=== PATIENT | female | born 1955 | race Caucasian/White ===

== ENCOUNTER 2017-10-12 06:58 | Day surgery (SDC) | payer OTHER ==
[2017-10-12] MEDS ORDERED: LACTATED RINGERS 1,000 ML IV ONE ×2 (07:05→11:51)
[2017-10-12] MEDS ORDERED: ceFAZolin 2 GM/50 ML 2 GM/50 ML BAG IV ONE (07:11)
[2017-10-12 07:44] LABS: BASOPHILS # (AUTO) 0.1 10^3/uL (0.0-0.1); BASOPHILS % (AUTO) 0.8 %; EOSINOPHILS # (AUTO) 0.3 10^3/uL (0.0-0.7); EOSINOPHILS % (AUTO) 3.4 %; HGB - HEMOGLOBIN 13.2 g/dL (12.0-16.0); LYMPHOCYTES # (AUTO) 3.1 10^3/uL (1.5-3.5); LYMPHOCYTES % (AUTO) 33.4 %; MEAN CORPUSCULAR HEMOGLOBIN 28.8 pg (27.0-31.0); MEAN CORPUSCULAR VOLUME 87.5 fL (81.0-99.0); MEAN PLATELET VOLUME 9.5 fL (7.9-10.8); MONOCYTES # (AUTO) 0.6 10^3/uL (0.0-1.0); MONOCYTES % (AUTO) 6.2 %; NEUTROPHILS # (AUTO) 5.2 10^3/uL (1.5-6.6); NEUTROPHILS % (AUTO) 56.2 %; PLT - PLATELET COUNT 244 10^3/uL (130-450); RED BLOOD COUNT 4.58 10^6/uL (4.20-5.40); WHITE BLOOD COUNT 9.3 x10^3/uL (4.8-10.8)
[2017-10-12 07:46] LABS: ALBUMIN 4.1 g/dL (3.2-5.5); ALBUMIN/GLOBULIN RATIO 1.1 (1.0-2.2); BILIRUBIN,TOTAL 0.6 mg/dL (0.2-1.0); CALCIUM 8.9 mg/dL (8.5-10.3); CREATININE 0.4 mg/dL (0.4-1.0); TOTAL PROTEIN 7.9 g/dL (6.7-8.2)
[2017-10-12] MEDS ORDERED: IPRATROPIUM/ALBUTEROL 3 ML NEB INH ONE (09:48)
[2017-10-12] MEDS ORDERED: ROCURONIUM 50 MG/5 ML VIAL IVP ONE (10:40)
[2017-10-12] MEDS ORDERED: ACETAMINOPHEN 1,000 MG/100 ML 100 ML IV ONE (10:40)
[2017-10-12] MEDS ORDERED: NEOSTIGMINE 1 MG/1 ML 10 ML MDV IVP ONE (10:40)
[2017-10-12] MEDS ORDERED: KETOROLAC 30 MG/ML VIAL IVP ONE (10:40)
[2017-10-12] MEDS ORDERED: ONDANSETRON 4 MG/2 ML VIAL IVP ONE (10:40)
[2017-10-12] MEDS ORDERED: ePHEDrine 50 MG/ML VIAL IVP ONE (10:40)
[2017-10-12] MEDS ORDERED: PROPOFOL 200 MG/20 ML VIAL IVP ONE (10:40)
[2017-10-12] MEDS ORDERED: GLYCOPYRROLATE 1 MG/5 ML VIAL IVP ONE (10:40)
[2017-10-12] MEDS ORDERED: fentaNYL 100 MCG/2 ML VIAL IVP ONE (10:40)
[2017-10-12] MEDS ORDERED: MIDAZOLAM 2 MG/2 ML VIAL IVP ONE (10:40)
[2017-10-12] MEDS ORDERED: LIDOCAINE-MPF 2% 5 ML VIAL IM ONE (10:40)
[2017-10-12] MEDS ORDERED: BUPIVACAINE 0.5% PF 30 ML VIAL INFIL ONE (10:44)
--- NOTE | 2017-10-12 12:18 | OPERATIVE REPORT ---
Operative Report - General Procedure Date: 10/12/17 Planned Procedure: Bilateral TEP inguinal herniorrhaphy Pre-Op Diagnosis: Bilateral inguinal hernias Procedure Performed: Bilateral TEP inguinal herniorrhaphy Post Op Diagnosis: Bilateral direct inguinal hernias - Procedure Note Primary Surgeon: Leighton Mendoza MD Anesthesia Provider: Cristofer Jones CRNA Anesthesia Technique: General LMA, Local (30 mL 1/2% marcaine) IV Fluids (mL): 900 Estimated Blood Loss (mL): 5 Urine Output (mL): 225 Drain/Tube Type: Other (None.) Complications: None. - Other Other Information/Narrative: OPERATIVE DESCRIPTION/REPORT: After verbal and written informed consent was obtained detailing the risks of infection, bleeding requiring transfusion with its risks, nerve injury, and , and after I met with the patient confirming the surgery and the site of the surgery, the patient was brought to the operative suite and placed supine on the operating table. Great care was taken to avoid pressure points to prevent pressure necrosis or nerve injury. Monitoring devices were applied along with TEDs and pneumatic compressive stockings (to prevent DVT). The patient received preoperative antibiotics for surgical prophylaxis. Cristofer Jones sedated and induced general anesthesia and provided anesthesia care for the entirety of the case. The patient was prepped and draped in the usual sterile manner. With the patient draped my initials were clearly visible. A "time in" then confirmed that the patient was identified with 3 identifiers ( name, date and medical record number), the history and physical was in the chart, the signed consent confirming the procedure was in the chart, the patient was in the correct position, the aforementioned prophylactic measures were in place or given, we had the correct personnel and equipment to complete the procedure and that anesthesia, surgery and nursing were given an opportunity to express any concerns. With the agreement of everyone in the room , we proceeded with the operation. A transverse skin incision was made below the umbilicus to a length of approximately 3 cm tracing the previous incision. The incision was carried through the subcutaneous tissue. Bleeders were cauterized. The right rectus sheath was identified and incised lateral to the midline. The preperitoneal space was then developed following insertion of a Spacemaker balloon, which was inflated under direct vision. Following removal of the Spacemaker balloon, a #10 trocar was placed in the preperitoneal space and the preperitoneal space was insufflated with CO2 to a steady state pressure of 12 mmHg. A 10 mm 30 degree laparoscope was inserted in the preperitoneal space. Two #5 trocars were placed 5 cm below the umbilicus and just medial to the epigastric vessels bilaterally under direct vision and without incident. Landmarks including symphysis pubis, right and left Warren ligaments and right and left inferior epigastric vessels were all identified. Dissection was then continued lateral to the transverse abdominis muscle bilaterally. The right side was addressed first. The internal ring was then explored for the presence of the indirect hernia sac and this was reduced under direct vision with traction and counter-traction. Exploration of the medial space showed a medial defect suggesting the presence of a direct hernia. The round ligament was identified and proximally and distally clipped twice and transected. The left side was similarly dissected and similar albeit smaller findings were documented. Because of my location at the opearting room table, I placed the LEFT side mesh first. A large size Bard 3DMax mesh (Lot#[id number], reference #[id number] and use by date 2022-04-26) was placed in the preperitoneal space and anchored to the symphysis pubis with a Securestrap tacker (Lot#[id number] , use by date 05/2019). The mesh covered the internal ring as well as the direct hernia site. The RIGHT side was then addressed and on this side a large size Bard 3DMax mesh (Lot#[id number], reference #[id number] and use by date ) was placed in the preperitoneal space and anchored to the symphysis pubis with a Securestrap tacker (Lot#[id number], use by date 05/2019). The two mesh pieces were made to overlap at the symphysis and a photo was taken of this. 10 mL of 1/2% Marcaine was injected into the preperitoneal space and then remaining 20 mL at all three incisions. The preperitoneal space was then deflated and during the deflation the mesh was watched to ensure that it was sandwiched nicely in place and did not change position. All trocars were withdrawn. The skin and fascia were injected with 1/ 2% macaine. The defect in the rectus sheath was closed with a 2 figure-of- eight 0 Vicryl sutures. The skin incisions were closed with subcuticular 4-0 Monocryl suture. The prep was washed off and Mastisol and Steristrips were applied at all the incisions. At this point a time out was performed that confirmed that all the counts were correct, the procedure that was performed, the blood loss, the IV fluids administered, and the patients condition. The prep was washed off and Benzoin and Steristrips were applied. Having tolerated the procedure well, the patient was subsequently extubated and taken to recovery room in good and stable condition.
[2017-10-12] MEDS ORDERED: oxyCOD/ACETAMIN 5 MG/325 MG TABLET PO ONE (12:49)
[2017-10-12 13:32] VITALS: BP 128/88
== END 2017-10-12 06:59 | disposition home or self-care (01) ==
LOC: SDS 06:58
PROVIDERS: ATTEND Surgery
PROC: 0YUA4JZ Supplement Bilateral Inguinal Region with Synthetic Substitute, Percutaneous Endoscopic Approach (ICD-10-PCS; principal; 2017-10-12 08:45)
DX: K40.20 Bilateral inguinal hernia, without obstruction or gangrene, not specified as recurrent (principal); I10 Essential (primary) hypertension; E11.9 Type 2 diabetes mellitus without complications; E78.5 Hyperlipidemia, unspecified; J44.9 Chronic obstructive pulmonary disease, unspecified; Z79.82 Long term (current) use of aspirin; Z79.84 Long term (current) use of oral hypoglycemic drugs; F17.210 Nicotine dependence, cigarettes, uncomplicated; I25.2 Old myocardial infarction; Z95.5 Presence of coronary angioplasty implant and graft
CPT/HCPCS: 36415; 49650; 80053; 85025; 93005; A9270; C1781; J0131; J0690; J7120; J7620

== ENCOUNTER 2017-12-11 00:32 | Emergency (ER) | payer OTHER ==
[2017-12-11 00:42] VITALS: BP 162/94
[2017-12-11] MEDS ORDERED: PSEUDOEPHEDRINE 30 MG TABLET PO STA (01:01)
[2017-12-11] MEDS ORDERED: IBUPROFEN 400 MG TABLET PO STA (01:01)
--- NOTE | 2017-12-11 01:04 | ED Physician Documentation ---
PD HPI HEENT - Stated complaint Stated Complaint: SORE THROAT - Chief complaint Chief Complaint: Heent - History obtained from History obtained from: Patient - History of Present Illness Timing - onset: How many weeks ago (3) Timing - details: Gradual onset, Intermittant Location: Throat Associated symptoms: Congestion. No: Facial swelling Similar symptoms before: Work up / diagnostics Recently seen: Clinic - Additional information Additional information: patient is a 62 year old female who is presenting to the emergency department for ear and throat pain. Patient states that the symptoms have been going on for almost 4 weeks. patient saw her pmd who started her on fluconazole for some patches. patient states that her throat is still red and irritated and was worried that she might have strep throat. patient denies any fevers. Review of Systems Constitutional: denies: Fever, Chills Eyes: denies: Discharge Ears: reports: Ear pain. denies: Drainage/discharge Nose: reports: Sinus pressure / pain Throat: reports: Oral lesions / sores, Sore throat Cardiac: denies: Chest pain / pressure, Palpitations Respiratory: reports: Cough, Wheezing GI: denies: Nausea, Vomiting : reports: Reviewed and negative Skin: denies: Rash, Lesions Neurologic: denies: Generalized weakness, Headache Immunocompromised: denies: Immunocompromised PD PAST MEDICAL HISTORY - Past Medical History Past Medical History: Yes Cardiovascular: Hypertension, High cholesterol, Coronary artery disease, [place], Arrhythmia, Other Respiratory: COPD, Shortness of breath Endocrine/Autoimmune: Type 2 diabetes GI: GERD : Other HEENT: Other Psych: Claustrophobia Musculoskeletal: Osteoarthritis Derm: None - Past Surgical History 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 surgery) Cardiovascular: Coronary stent - Present Medications Home Medications: Ambulatory Orders Medication Instructions Recorded Confirmed Ascorbic Acid [Vitamin C] 500 mg PO DAILY 10/11/17 10/11/17 Aspirin [Aspirin EC] 81 mg PO DAILY 10/11/17 10/12/17 Cetirizine [ZyrTEC] 10 mg PO DAILY 10/11/17 10/12/17 Fluticasone [Flonase] 1 sprays SANTHOSH DAILY 10/11/17 10/12/17 Fluticasone/Salmeterol [Advair 1 each IH BID 10/11/17 10/12/17 500-50 Diskus] Metformin HCl 500 mg PO DAILY 10/11/17 10/12/17 Metoprolol Tartrate 75 mg PO DAILY 10/11/17 10/12/17 Naproxen Sodium [Aleve] 220 mg PO DAILY PM 10/11/17 10/11/17 Pantoprazole [Protonix] 40 mg PO DAILY 10/11/17 10/12/17 Psyllium Husk [Metamucil] 4 cap PO DAILY 10/11/17 10/12/17 Tiotropium [place] [Spiriva] 1 cap IH DAILY 10/11/17 10/12/17 Vitamin B Complex/Folic Acid 1 tab PO DAILY 10/11/17 10/11/17 [B-Complex Tablet] Amlodipine Besylate [Norvasc] 10 mg PO DAILY 10/12/17 10/12/17 Carbamide Peroxide Otic Drop 10 drops OT ONCE #1 bottle 12/11/17 [Debrox Otic Drops] - Allergies Allergies/Adverse Reactions: Allergies Allergy/AdvReac Type Severity Reaction Status Date / Time No Known Drug Allergies Allergy Verified 12/11/17 00:41 - Social History Does the pt smoke?: No Smoking Status: Never smoker Does the pt drink ETOH?: No Does the pt have substance abuse?: No - Immunizations Immunizations are current?: Yes - POLST Patient has POLST: No PD ED PE NORMAL - Vitals Vital signs reviewed: Yes - General General: Alert and oriented X 3, No acute distress - HEENT HEENT: Atraumatic - Neck Neck: No adenopathy - Cardiac Cardiac: RRR - Respiratory Respiratory: No respiratory distress - Abdomen Abdomen: Non distended - Derm Derm: Normal color, Warm and dry - Extremities Extremities: No deformity - Neuro Neuro: Alert and oriented X 3, No motor deficit Eye Opening: Spontaneous PD ED PE EXPANDED - HEENT HEENT: Nasal congestion, Pharyngeal erythema, Dentition normal, Other ( bilateral cerumen). 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 Patient was in no distress. rapid strep was performed. patient's cerumen was partially removed. Patient's exam was benign in nature. Patient was treated with ibuprofen and psuedophed. Patient required no further work up and was stable for discharge with outpatient follow up. Departure - Departure Disposition: Home, Self Care Clinical Impression: Pharyngitis Condition: Good Instructions: ED Pharyngitis Viral Follow-Up: KENYATTA ESPINAL MD [Primary Care Provider] - Within 3 Days Prescriptions: Carbamide Peroxide Otic Drop [Debrox Otic Drops] 10 drops OT ONCE #1 bottle Comments: Your diagnostics today were within normal limits. strep test was negative. there was a moderate amount of cerumen in your ears but no sign of overt infection. You should start with decongestants, and throat lozenges as it is likely viral as opposed to bacterial. You should follow up with your doctor if your symptoms persist. You should also stop smoking as it is likely contributing to you issues.
== END 2017-12-11 01:10 | disposition home or self-care (01) ==
LOC: ED 00:32
DX: J02.9 Acute pharyngitis, unspecified (principal); I10 Essential (primary) hypertension; E11.9 Type 2 diabetes mellitus without complications; Z79.84 Long term (current) use of oral hypoglycemic drugs; E78.00 Pure hypercholesterolemia, unspecified; I25.10 Atherosclerotic heart disease of native coronary artery without angina pectoris; I25.2 Old myocardial infarction; I49.9 Cardiac arrhythmia, unspecified; J44.9 Chronic obstructive pulmonary disease, unspecified; K21.9 Gastro-esophageal reflux disease without esophagitis; M19.90 Unspecified osteoarthritis, unspecified site; Z79.82 Long term (current) use of aspirin
CPT/HCPCS: 87070; 87430; 99283; A9270

== ENCOUNTER 2018-03-06 14:14 | Emergency (ER) | payer OTHER ==
[2018-03-06 14:28] VITALS: BP 148/74
[2018-03-06] MEDS ORDERED: LIDOCAINE 2% 10 ML MDV SUBQ STA (14:50)
--- NOTE | 2018-03-06 14:59 | ED Physician Documentation ---
History of Present Illness - Stated complaint Stated Complaint: LT HAND FING RING STUCK - Chief complaint Chief Complaint: General - History obtained from History obtained from: Patient - History of Present Illness Timing: Other (hasn't tried to remove the rings for 3 years.) Pain level max: 0 Pain level now: 0 Improved by: nothing Worsened by: nothing - Additonal information Additional information: Patient is a 63-year-old female who presents to the emergency department with a ring stuck on her left ring finger. The rings were last removed 3 years ago. Tried to go to a jeweler but they could not remove the rings as they were made of steel. She then went to the police station who also could not help her. She tried dental floss at home but was unable to remove the rings. 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 surgery) Cardiovascular: Coronary stent - Present Medications Home Medications: Ambulatory Orders Medication Instructions Recorded Confirmed Ascorbic Acid [Vitamin C] 500 mg PO DAILY 10/11/17 10/11/17 Aspirin [Aspirin EC] 81 mg PO DAILY 10/11/17 10/12/17 Cetirizine [ZyrTEC] 10 mg PO DAILY 10/11/17 10/12/17 Fluticasone [Flonase] 1 sprays SANTHOSH DAILY 10/11/17 10/12/17 Fluticasone/Salmeterol [Advair 1 each IH BID 10/11/17 10/12/17 500-50 Diskus] Metformin HCl 500 mg PO DAILY 10/11/17 10/12/17 Metoprolol Tartrate 75 mg PO DAILY 10/11/17 10/12/17 Pantoprazole [Protonix] 40 mg PO DAILY 10/11/17 10/12/17 Psyllium Husk [Metamucil] 4 cap PO DAILY 10/11/17 10/12/17 Tiotropium [place] [Spiriva] 1 cap IH DAILY 10/11/17 10/12/17 Vitamin B Complex/Folic Acid 1 tab PO DAILY 10/11/17 10/11/17 [B-Complex Tablet] Amlodipine Besylate [Norvasc] 10 mg PO DAILY 10/12/17 10/12/17 - Allergies Allergies/Adverse Reactions: Allergies Allergy/AdvReac Type Severity Reaction Status Date / Time No Known Drug Allergies Allergy Verified 03/06/18 14:26 - Social History Does the pt smoke?: No Smoking Status: Never smoker Does the pt drink ETOH?: No Does the pt have substance abuse?: No - Immunizations Immunizations are current?: Yes - POLST Patient has POLST: No PD ED PE NORMAL - Vitals Vital signs reviewed: Yes - General General: Alert and oriented X 3, No acute distress - HEENT HEENT: Moist mucous membranes - Neck Neck: Supple, no meningeal sign - Derm Derm: Warm and dry - Extremities Extremities: Other (mildly swollen L ring finger. [address] NVI[address] - Neuro Neuro: Alert and oriented X 3 - Psych Psych: Normal mood, Normal affect Results - Vitals Vitals: Vital Signs - 24 hr 03/06/18 14:24 Temperature 36.5 C Heart Rate 74 Respiratory 16 Rate Blood Pressure 148/74 H O2 Saturation 98 Oxygen O2 Source Room air PD MEDICAL DECISION MAKING - ED course Complexity details: considered differential, d/w patient ED course: Patient is a 63-year-old female with 2 readings that are stuck on the left ring finger. Digital block was performed with 2% lidocaine via trans-thecal block with excellent anesthesia achieved. A tourniquet was then wrapped from distal to proximal over the finger and when it was removed the rings were able to be slid over the knuckle and off the finger. Patient tolerated well. No skin tears or lacerations. Patient counseled regarding signs and symptoms for which I believe and urgent re-evaluation would be necessary. Patient with good understanding of and agreement to plan and is comfortable going home at this time This document was made in part using voice recognition software. While efforts are made to proofread this document, sound alike and grammatical errors may occur. - Sepsis Event Vital Signs: Vital Signs - 24 hr 03/06/18 14:24 Temperature 36.5 C Heart Rate 74 Respiratory 16 Rate Blood Pressure 148/74 H O2 Saturation 98 Oxygen O2 Source Room air Departure - Departure Disposition: 01 Home, Self Care Clinical Impression: Ring or other jewelry causing external constriction, initial encounter Condition: Good Instructions: ED Foreign Body Soft Tissue Removed Follow-Up: Provider,Other [Primary Care Provider] - As Needed Comments: Return if you worsen. Discharge Date/Time: 03/06/18 15:30
== END 2018-03-06 15:30 | disposition home or self-care (01) ==
LOC: ED 14:14
DX: S60.443A External constriction of left middle finger, initial encounter (principal); W49.04XA Ring or other jewelry causing external constriction, initial encounter
CPT/HCPCS: 64450; 99282; 99283

== ENCOUNTER 2018-09-12 05:49 | Day surgery (SDC) | payer OTHER ==
[2018-09-12] MEDS ORDERED: LACTATED RINGERS 1,000 ML IV ONE (06:48)
--- NOTE | 2018-09-12 06:54 | ANESTHESIA ---
Pre-Anesthesia VS, & Labs - Diagnosis right ovarian cyst, endometrial polyp - Procedure right laparoscopiv salpingo-oopherectomy, myosure hysteroscopy, d&c Vital Signs: Temp Pulse Resp BP Pulse Ox 36.7 C 73 16 151/72 H 96 09/12/18 06:35 09/12/18 06:35 09/12/18 06:35 09/12/18 06:35 09/12/18 06:35 Height 5 ft 2 in Weight (kg) 57.61 kg Body Mass Index 21.9 - NPO >8 hours - Is Patient ?: Not Applicable - Lab Results Current Lab Results: Laboratory Tests 09/12/18 06:47: POC Whole Bld Glucose 103 H Home Medications and Allergies Home Medications: Ambulatory Orders Albuterol Sulfate [Proventil Hfa Inhaler] 1 - 2 puffs INH Q4H PRN 09/05/18 Atorvastatin Calcium 40 mg PO 09/05/18 B-Complex with Vitamin C [Super B Complex-Vitamin C] 1 each PO 09/05/18 Lisinopril 20 mg PO 09/05/18 Metoprolol Succinate 50 mg PO 09/05/18 Nitroglycerin [Nitrostat] 0.4 mg SL Q5MIN PRN 09/05/18 Ascorbic Acid [Vitamin C] 500 mg PO DAILY 10/11/17 Aspirin [Aspirin EC] 81 mg PO DAILY 10/11/17 Cetirizine [ZyrTEC] 10 mg PO DAILY 10/11/17 Fluticasone/Salmeterol [Advair 500-50 Diskus] 1 each IH BID 10/11/17 Metformin HCl 500 mg PO DAILY 10/11/17 Metoprolol Tartrate 25 mg PO DAILY 10/11/17 Pantoprazole [Protonix] 40 mg PO DAILY 10/11/17 Psyllium Husk [Metamucil] 4 cap PO DAILY 10/11/17 Tiotropium [place] [Spiriva] 1 cap IH DAILY 10/11/17 Albuterol Sulfate [Proventil Hfa Inhaler] 1 - 2 puffs INH Q4H PRN 09/05/18 Atorvastatin Calcium 40 mg PO 09/05/18 B-Complex with Vitamin C [Super B Complex-Vitamin C] 1 each PO 09/05/18 Lisinopril 20 mg PO 09/05/18 Metoprolol Succinate 50 mg PO 09/05/18 Nitroglycerin [Nitrostat] 0.4 mg SL Q5MIN PRN 09/05/18 Allergies/Adverse Reactions: Allergies Allergy/AdvReac Type Severity Reaction Status Date / Time Iodinated Contrast- Oral and Allergy Respiratory Verified 09/05/18 14:59 IV Dye Anes History & Medical History - Anesthetic History Anesthesia Complications: reports: No previous complications Family history of Anesthesia Complications: Denies Family history of Malignant Hyperthermia: Denies - Medical History Cardiovascular: reports: Hypertension, High cholesterol, [place] Pulmonary: reports: COPD Gastrointestinal: reports: GERD Urinary: reports: Other Musculoskeletal: reports: None Endocrine/Autoimmune: reports: Type 2 diabetes Skin: reports: None Smoking Status: Never smoker - Surgical History General: Other Cardiothoracic: Coronary stent Gynecologic: LEEP (Cervical surgery) Exam General: Alert, Oriented x3, Cooperative, No acute distress Dental: Dentures full Upper, Dentures full Lower Mouth Openin Fingerbreadth Neck Mobility: Normal Mallampati classification: III Thyromental Distance: greater than 6 cm Respiratory: Lungs clear, Normal breath sounds, No respiratory distress, No accessory muscle use Cardiovascular: Regular rate, Normal S1, Normal S2, No murmurs Mental/Cognitive Status: Alert/Oriented X3, Normal for patient Plan Anesthesia Type: General Consent for Procedure(s) Verified and Reviewed: No Code Status: Attempt Resuscitation ASA classification: 2-Mild systemic disease Is this case an emergency?: No
[2018-09-12] MEDS ORDERED: BUPIVACAINE 0.25% PF 30 ML VIAL ONE (07:23)
[2018-09-12] MEDS ORDERED: BUPIVACAINE 0.25% PF 30 ML VIAL SUBQ ONE ×2 (08:19)
[2018-09-12] MEDS ORDERED: GLYCOPYRROLATE 1 MG/5 ML VIAL IVP ONE (08:20)
[2018-09-12] MEDS ORDERED: ONDANSETRON 4 MG/2 ML VIAL IVP ONE (08:20)
[2018-09-12] MEDS ORDERED: NEOSTIGMINE 1 MG/1 ML 10 ML MDV IVP ONE (08:20)
[2018-09-12] MEDS ORDERED: LIDOCAINE-MPF 2% 5 ML VIAL IM ONE (08:20)
[2018-09-12] MEDS ORDERED: fentaNYL 100 MCG/2 ML VIAL IVP ONE (08:20)
[2018-09-12] MEDS ORDERED: ROCURONIUM 50 MG/5 ML VIAL IVP ONE (08:20)
[2018-09-12] MEDS ORDERED: KETOROLAC 30 MG/ML VIAL IVP ONE (08:20)
[2018-09-12] MEDS ORDERED: PROPOFOL 200 MG/20 ML VIAL IVP ONE (08:20)
[2018-09-12] MEDS ORDERED: LIDOCAINE 1% 50 ML MDV ONE (08:41)
[2018-09-12] MEDS ORDERED: LIDOCAINE 1% 50 ML MDV SUBQ ONE ×2 (08:53)
[2018-09-12] MEDS ORDERED: ONDANSETRON 4 MG/2 ML VIAL IVP PRN (09:14)
[2018-09-12] MEDS ORDERED: HYDROcod/ACETAM 10 MG/325 MG TABLET PO PRN (09:14)
[2018-09-12] MEDS ORDERED: ALBUTEROL NEB 2.5 MG/3 ML INH ONE (09:28)
--- NOTE | 2018-09-12 09:28 | OPERATIVE REPORT ---
Operative Report - General Procedure Date: 09/12/18 Planned Procedure: L/S RSO; hysteroscopic resection of endometrial polyp Pre-Op Diagnosis: right ovarian cyst; endometrial polyp Procedure Performed: laparoscopic right salpingooophorectomy; hysteroscopic resection of endometrial polyp Post Op Diagnosis: CHERELLE - Procedure Note Primary Surgeon: Ehsan Secondary Surgeon: Remi Anesthesia Provider: Andrea Anesthesia Technique: General ET tube, Local, Regional block Pathology: right tube and ovary endocervical curettings endometrial polyp and curettings Estimated Blood Loss (mL): 5 Complications: none - Other Other Information/Narrative: Findings EUA Normal anteverted uterus with non-palpable left adnexa and a 4 cm right ovarian cyst. Operative findings Normal uterus, right tube, left tube and ovary, anterior and posterior cul-de-sacs, and liver edge. There was a 4 cm simple appearing right ovarian cyst. Description of operation The patient was brought to the operating room and placed supine on the operating table. She was then given general oral endotracheal anesthesia and placed in low lithotomy stirrups and prepped and draped in the usual sterile fashion. A timeout was performed. An examination under anesthesia was performed. A speculum was placed in her vagina and the cervix was grasped with a single-tooth tenaculum. The cervix was serially dilated to a #7 Hegar dilator after which a Hulka tenaculum was placed. Attention was turned to the abdomen where the umbilicus was infiltrated with 5 cc of quarter percent Marcaine after which a midline stab incision was made in the umbilicus and a Veress needle was inserted into the abdominal cavity with its position verified by hanging drop technique. The abdomen was insufflated to 2 L of carbon dioxide after which the Veress needle was removed and replaced by the 5 mm laparoscopic trocar and sleeve with the laparoscope in place allowing direct visualization of entry into the abdomen. 5 mm trochars were placed in the previous 5 mm trocar sites from her hernia surgery after infiltration of the area with 5 cc of quarter percent Marcaine, stab incisions, and direct visualization of entry into the abdomen. Cutting coagulating forceps were used to doubly coagulate and divide the infundibulopelvic ligament on the right and sequential bites used to divide the mesosalpinx down to the level of the cornu after which the right tube and ovary was from the uterus. The right lower quadrant trocar site was enlarged to allow placement of an 11 mm trocar and sleeve which allowed placement of a laparoscopic bag into which the tube and ovary was placed. The bag was brought to the abdominal wall where the ovarian cyst was punctured and the fluid was removed allowing the bag with cyst inside to be removed from the abdominal cavity. The operative site was inspected for hemostasis which was judged adequate. The abdomen was desufflated to the extent possible and trochars were removed under direct visualization. The 11 mm trocar site fascia was closed with 0 Vicryl suture. The skin was closed with 4-0 Monocryl and Dermabond and attention was turned to the vagina where the Hulka tenaculum was removed. A speculum was placed, followed by a single-tooth tenaculum. A paracervical block of 20 cc of 1% lidocaine was given. The cervix was again dilated to a #8 Hegar dilator after which endocervical curettings were obtained on a Telfa pad. A 0 degree hysteroscope was inserted into the uterine cavity allowing visualization of the endometrial cavity and the endometrial polyp. The Myosure device was introduced and the endometrial polyp was removed without difficulty. Endometrial curettings were obtained with the Myosure device. Once adequacy of curettage was assured, instruments were withdrawn from the endometrial cavity and vagina and the patient was awakened and taken to the recovery room in stable condition.
[2018-09-12] MEDS ORDERED: HYDROcod/ACETAM 10 MG/325 MG TABLET ONE (11:03)
[2018-09-12 11:18] VITALS: BP 127/65
== END 2018-09-12 05:50 | disposition home or self-care (01) ==
LOC: SDS 05:49
PROVIDERS: ATTEND Obstetrics & Gynecology
PROC: 0UB98ZZ Excision of Uterus, Via Natural or Artificial Opening Endoscopic (ICD-10-PCS; 2018-09-12)
PROC: 0UDB8ZX Extraction of Endometrium, Via Natural or Artificial Opening Endoscopic, Diagnostic (ICD-10-PCS; 2018-09-12)
PROC: 0UT04ZZ Resection of Right Ovary, Percutaneous Endoscopic Approach (ICD-10-PCS; principal; 2018-09-12 07:30)
PROC: 0UT54ZZ Resection of Right Fallopian Tube, Percutaneous Endoscopic Approach (ICD-10-PCS; 2018-09-12 07:30)
DX: N83.291 Other ovarian cyst, right side (principal); N84.0 Polyp of corpus uteri; F17.210 Nicotine dependence, cigarettes, uncomplicated; R10.31 Right lower quadrant pain; I25.2 Old myocardial infarction; I10 Essential (primary) hypertension; J44.9 Chronic obstructive pulmonary disease, unspecified; K21.9 Gastro-esophageal reflux disease without esophagitis; E11.9 Type 2 diabetes mellitus without complications
CPT/HCPCS: 58558; 58661; 93005; A9270; J7120

== ENCOUNTER 2018-12-03 17:51 | Emergency (ER) | payer OTHER ==
[2018-12-03] MEDS ORDERED: ONDANSETRON ODT 4 MG TABLET TL STA (18:08)
[2018-12-03] MEDS ORDERED: ALBUTEROL NEB 2.5 MG/3 ML INH STA (18:08)
--- NOTE | 2018-12-03 18:19 | ED Physician Documentation ---
PD HPI URI - Stated complaint Stated Complaint: COUGHING - Chief complaint Chief Complaint: Resp - History obtained from History obtained from: Patient - History of Present Illness Timing - onset: How many days ago (5) Timing duration: Days (5) Timing details: Gradual onset Pain level max: 0 Pain level now: 0 Associated symptoms: Fever, Nasal congestion, Rhinorrhea, Dry cough, Dyspnea, NVD (Patient has had nausea, vomiting and diarrhea with this as well). 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 Review of Systems Ten Systems: 10 systems reviewed and negative Constitutional: reports: Fever GI: reports: Nausea, Vomiting, Diarrhea. 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 surgery) Cardiovascular: Coronary stent - Present Medications Home Medications: Ambulatory Orders Medication Instructions Recorded Confirmed Ascorbic Acid [Vitamin C] 500 mg PO DAILY 10/11/17 10/11/17 Aspirin [Aspirin EC] 81 mg PO DAILY 10/11/17 10/12/17 Cetirizine [ZyrTEC] 10 mg PO DAILY 10/11/17 10/12/17 Fluticasone/Salmeterol [Advair 1 each IH BID 10/11/17 10/12/17 500-50 Diskus] Metformin HCl 500 mg PO DAILY 10/11/17 10/12/17 Metoprolol Tartrate 25 mg PO DAILY 10/11/17 09/12/18 Pantoprazole [Protonix] 40 mg PO DAILY 10/11/17 09/12/18 Psyllium Husk [Metamucil] 4 cap PO DAILY 10/11/17 09/12/18 Tiotropium [place] [Spiriva] 1 cap IH DAILY 10/11/17 09/12/18 Albuterol Sulfate [Proventil Hfa 1 - 2 puffs INH Q4H PRN 09/05/18 09/12/18 Inhaler] Atorvastatin Calcium 40 mg PO 09/05/18 B-Complex with Vitamin C [Super B 1 each PO 09/05/18 Complex-Vitamin C] Lisinopril 20 mg PO 09/05/18 Metoprolol Succinate 50 mg PO 09/05/18 Nitroglycerin [Nitrostat] 0.4 mg SL Q5MIN PRN 09/05/18 09/05/18 Albuterol 2.5 mg INH Q4H PRN #30 neb 12/03/18 Doxycycline Hyclate 100 mg PO BID #20 capsule 12/03/18 Ondansetron Odt [Zofran] 4 mg TL Q6H PRN #10 tablet 12/03/18 predniSONE [Deltasone] 10 mg PO [id number] #42 tab 12/03/18 - Allergies Allergies/Adverse Reactions: Allergies Allergy/AdvReac Type Severity Reaction Status Date / Time Iodinated Contrast- Oral and Allergy Respiratory Verified 12/03/18 17:59 IV Dye - Social History Does the pt smoke?: No Smoking Status: Never smoker Does the pt drink ETOH?: No Does the pt have substance abuse?: No - Immunizations Immunizations are current?: Yes - POLST Patient has POLST: No PD ED PE NORMAL - Vitals Vital signs reviewed: Yes - General General: Alert and oriented X 3, No acute distress, Well developed/nourished - HEENT HEENT: PERRL, Ears normal, Moist mucous membranes, Pharynx benign, Other (Clear rhinorrhea) - Neck Neck: Supple, no meningeal sign - Cardiac Cardiac: RRR, Strong equal pulses - Respiratory Respiratory: No respiratory distress, Other (Diminished breath sounds and wheezing bilaterally) - Abdomen Abdomen: Soft, Non tender, Non distended - Back Back: No CVA TTP, No spinal TTP - Derm Derm: Warm and dry, No rash - Neuro Neuro: Alert and oriented X 3 - Psych Psych: Normal mood, Normal affect Results - Vitals Vitals: Vital Signs - 24 hr 12/03/18 12/03/18 12/03/18 17:57 18:21 19:11 Temperature 38.2 C H 36.6 C Heart Rate 100 100 98 Respiratory 16 20 18 Rate Blood Pressure 144/107 H 120/92 H O2 Saturation 99 92 Oxygen O2 Source Room air - Labs Labs: Laboratory Tests 12/03/18 18:00 Influenza A (Rapid) Negative Influenza B (Rapid) Negative - Rads (name of study) Chest x-ray Radiology: Prelim report reviewed, EMP read contemporaneously, See rad report (Mild right lower lung hazy/streaky opacity is consistent with atelectasis or infiltrate, without taylor consolidation. ) PD MEDICAL DECISION MAKING - ED course Complexity details: reviewed results, re-evaluated patient, considered differential, d/w patient ED course: 63-year-old female with pneumonia and COPD flare. Will prescribe albuterol for her nebulizer, steroids and antibiotics for home. She is well-appearing, nontoxic. No hypoxia or respiratory distress. Comfortable going home at this time. Patient counseled regarding signs and symptoms for which I believe and urgent re-evaluation would be necessary. Patient with good understanding of and agreement to plan and is comfortable going home at this time This document was made in part using voice recognition software. While efforts are made to proofread this document, sound alike and grammatical errors may occur. Departure - Departure Disposition: 01 Home, Self Care Clinical Impression: Pneumonia Qualifiers: Pneumonia type: due to unspecified organism Laterality: right Lung location: lower lobe of lung Qualified Code(s): J18.1 - Lobar pneumonia, unspecified organism Condition: Good Instructions: ED Pneumonia Adult Follow-Up: your,doctor in 1 week [Other] Prescriptions: Albuterol 2.5 mg INH Q4H PRN #30 neb PRN Reason: Wheezing Doxycycline Hyclate 100 mg PO BID #20 capsule Ondansetron Odt [Zofran] 4 mg TL Q6H PRN #10 tablet PRN Reason: Nausea / Vomiting predniSONE [Deltasone] 10 mg PO [id number] #42 tab Comments: Use the medications as prescribed. Return if you worsen. Follow-up with your doctor for further evaluation and care. Forms: Activity restrictions Discharge Date/Time: 12/03/18 19:18
--- NOTE | 2018-12-03 19:04 | XRAY Report ---
Reason: cough Procedure Date: 12/03/2018 Accession Number: [id number] / [id number] Procedure: XR - Chest 2 View X-Ray CPT Code: 65838 FULL RESULT: EXAM: CHEST RADIOGRAPHY EXAM DATE: 12/03/2018 06:43 PM. CLINICAL HISTORY: Cough. COMPARISON: None. TECHNIQUE: 2 views. FINDINGS: Lungs/Pleura: Mild hazy, streaky right lower lung atelectasis or infiltrate. No focal consolidation. No pleural effusion. No pneumothorax. Mediastinum: Heart and mediastinal contours are unremarkable. Other: None. IMPRESSION: Mild right lower lung hazy/streaky opacity is consistent with atelectasis or straight, without taylor consolidation. RADIA
[2018-12-03] MEDS ORDERED: DOXYCYCLINE 100 MG TABLET PO STA (19:06)
[2018-12-03] MEDS ORDERED: predniSONE 20 MG TABLET PO STA (19:06)
[2018-12-03 19:12] VITALS: BP 120/92
== END 2018-12-03 19:18 | disposition home or self-care (01) ==
LOC: ED 17:51
DX: J18.1 Lobar pneumonia, unspecified organism (principal); J44.9 Chronic obstructive pulmonary disease, unspecified; I25.2 Old myocardial infarction; E11.9 Type 2 diabetes mellitus without complications; Z79.84 Long term (current) use of oral hypoglycemic drugs; I10 Essential (primary) hypertension; E78.00 Pure hypercholesterolemia, unspecified; Z95.5 Presence of coronary angioplasty implant and graft
CPT/HCPCS: 71046; 87275; 87276; 94640; 94664; 99283; 99284; A9270; J7512; Q0162

== ENCOUNTER 2019-09-20 13:01 | Emergency (ER) | payer OTHER ==
--- NOTE | 2019-09-20 15:20 | ED Physician Documentation ---
PD HPI HEENT - Stated complaint Stated Complaint: SINUS CONGESTION - Chief complaint Chief Complaint: Heent - History obtained from History obtained from: Patient - History of Present Illness Timing - onset: How many weeks ago (6) Timing - duration: Weeks (6) Timing - details: Gradual onset Location: Right ear, Left ear, Sinuses. No: Throat Associated symptoms: Congestion, Rhinorrhea. No: Fever Recently seen: Not recently seen - Additional information Additional information: This is a 64-year-old woman who presents with complaints that around the beginning of July she started with some nasal congestion and clear rhinorrhea and she has been trying to work through it using a [employer] pot but is just been getting worse through the month and she is more congested. She had to stop using her Flonase because it because she could not even get it back into her nose. She has a lot of pain across her frontal region and now her eyelids are hurting looks swollen. Her eyes have turned red. The mucus that she is able to get out of her nose is thick and green sometimes with some blood in it that she thinks is just from all the effort of blowing. She is had ear pain off and on. No sore throat. No fever. She is been a little nauseous but no vomiting. No blurry or double vision. No dizziness. Patient has taken Aleve for her symptoms. She also has a history of asthma and is using her inhalers. She is coughing and wheezing. Review of Systems Constitutional: denies: Fever Eyes: denies: Other (No blurry or double vision) Ears: reports: Ear pain. denies: Loss of hearing Nose: reports: Rhinorrhea / runny nose, Congestion, Epistaxis Throat: reports: Sore throat Respiratory: reports: Dyspnea, Cough, Wheezing GI: reports: Nausea. 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) Cardiovascular: Coronary stent - Present Medications Home Medications: Ambulatory Orders Medication Instructions Recorded Confirmed Ascorbic Acid [Vitamin C] 500 mg PO DAILY 10/11/17 10/11/17 Aspirin [Aspirin EC] 81 mg PO DAILY 10/11/17 10/12/17 Cetirizine [ZyrTEC] 10 mg PO DAILY 10/11/17 10/12/17 Fluticasone/Salmeterol [Advair 1 each IH BID 10/11/17 10/12/17 500-50 Diskus] Metformin HCl 500 mg PO DAILY 10/11/17 10/12/17 Pantoprazole [Protonix] 40 mg PO DAILY 10/11/17 09/12/18 Psyllium Husk [Metamucil] 4 cap PO DAILY 10/11/17 09/12/18 Tiotropium [place] [Spiriva] 1 cap IH DAILY 10/11/17 09/12/18 Albuterol Sulfate [Proventil Hfa 1 - 2 puffs INH Q4H PRN 09/05/18 09/12/18 Inhaler] Atorvastatin Calcium 40 mg PO 09/05/18 B-Complex with Vitamin C [Super B 1 each PO 09/05/18 Complex-Vitamin C] Nitroglycerin [Nitrostat] 0.4 mg SL Q5MIN PRN 09/05/18 09/05/18 lisinopriL [Lisinopril] 20 mg PO 09/05/18 Albuterol 2.5 mg INH Q4H PRN #30 neb 12/03/18 Amoxicillin 875 mg PO BID #20 tablet 09/20/19 Metoprolol Succinate 75 mg PO DAILY 09/20/19 09/20/19 predniSONE [Deltasone] 40 mg PO DAILY 3 Days #6 tablet 09/20/19 - Allergies Allergies/Adverse Reactions: Allergies Allergy/AdvReac Type Severity Reaction Status Date / Time Iodinated Contrast Media Allergy Respiratory Verified 09/20/19 13:05 [Iodinated Contrast- Oral and IV Dye] - Social History Does the pt smoke?: No Smoking Status: Never smoker Does the pt drink ETOH?: No Does the pt have substance abuse?: No - Immunizations Immunizations are current?: Yes - POLST Patient has POLST: No PD ED PE NORMAL - Vitals Vital signs reviewed: Yes - General General: Alert and oriented X 3, No acute distress, Well developed/nourished - HEENT HEENT: Atraumatic, PERRL, EOMI, Moist mucous membranes, Other (Conjunctiva is injected bilaterally. She almost looks like she has bruising around the eyelids bilaterally. There is no bogginess to the frontal forehead region but it is painful and she has tenderness over the maxillary sinuses as well as across the bridge of the nose. Her extraocular muscles are intact and there is no entrapment. The tympanic membranes are obscured by cerumen in the ear canals bilaterally. Nasal mucosa is very boggy particularly in the right nostril is completely occluding and there is just a thin murky green drainage bilaterally.) - Neck Neck: Supple, no meningeal sign, No adenopathy - Cardiac Cardiac: RRR - Respiratory Respiratory: No respiratory distress, Other (There is diffuse wheezing inspiratory and expiratory bilaterally.) - Neuro Neuro: Alert and oriented X 3, firer marine 2-12 intact, No motor deficit, No sensory deficit, Normal speech - Psych Psych: Normal mood, Normal affect Results - Vitals Vitals: Vital Signs - 24 hr 09/20/19 13:05 Temperature 36.8 C Heart Rate 66 Respiratory 14 Rate Blood Pressure 152/95 H O2 Saturation 100 Oxygen O2 Source Room air PD MEDICAL DECISION MAKING - ED course Complexity details: d/w patient ED course: We will treat with amoxicillin for sinus infection. Plan for 3-day burst of steroids. Steam to help open the sinuses. Follow-up if not improving in 48 hours particularly if symptoms are worsening including double vision, increasing headache, dizzy or vomiting. Departure - Departure Disposition: 01 Home, Self Care Clinical Impression: Bronchitis Sinusitis Qualifiers: Sinusitis location: unspecified location Chronicity: acute Recurrence: not specified as recurrent Qualified Code(s): J01.90 - Acute sinusitis, unspecified Condition: Good Instructions: ED Sinusitis Abx Tx Follow-Up: [facility] [Provider Group] Prescriptions: Amoxicillin 875 mg PO BID #20 tablet predniSONE [Deltasone] 40 mg PO DAILY 3 Days #6 tablet Comments: Take the amoxicillin twice a day for 10 days. Take the prednisone 2 tablets daily for 3 days. Use steam to help open up the sinuses. Continue using your inhalers. Follow-up if not improving in 48 hours particularly if you have increasing headache, you are dizzy and or vomiting, you have a fever this not responding to Tylenol, or double vision.
[2019-09-20 15:55] VITALS: BP 144/88
== END 2019-09-20 16:06 | disposition home or self-care (01) ==
LOC: ED 13:01
DX: J40 Bronchitis, not specified as acute or chronic (principal); J01.10 Acute frontal sinusitis, unspecified; J01.00 Acute maxillary sinusitis, unspecified; I10 Essential (primary) hypertension; E11.9 Type 2 diabetes mellitus without complications; Z79.84 Long term (current) use of oral hypoglycemic drugs
CPT/HCPCS: 99282; 99284

== ENCOUNTER 2022-11-05 09:09 | Outpatient (CLI) | payer MEDICARE, OTHER ==
--- NOTE | 2022-11-05 12:10 | DEXA Report ---
PROCEDURE: Dexa Spine and/or Hip INDICATIONS: SCREENING FOR OSTEOPOROSIS TECHNIQUE: Dual energy x-ray absorptiometry (DXA) was performed on a Tour Desk System. Regions measur ed are the AP Spine, femoral neck, and if needed forearm. COMPARISON: None. FINDINGS: Lumbar Spine: Bone Mineral Density 1.569 g/cm/cm,T score 3.3, normal. Left Femoral Neck: Bone Mineral Density 0.847 g/cm/cm, T score -1.4, osteopenic. Left Hip: Bone Mineral Density 0.904 g/cm/cm,T score -0.8, within normal limits. (T score greater or equal to -1.0: NORMAL) (T score from -1.1 to -2.4: OSTEOPENIA) (T score less than or equal to -2.5 to: OSTEOPOROSIS) Impression: Osteopenia of the left femoral neck. Patients with diagnosis of osteoporosis or osteopenia should have regular bone mineral density assess ment. For those eligible for Medicare, routine testing is allowed once every 2 years. Testing frequ ency can be increased for patients who have rapidly progressing disease or for those who are receivin g medical therapy to restore bone mass. Reviewed by: Gerson Mancuso on 11/05/2022 12:09 PM PST Approved by: Gerson Mancuso on 11/05/2022 12:09 PM PST Station ID: [id number]
--- NOTE | 2022-11-05 12:13 | CT Report ---
PROCEDURE: Low Dose Lung Cancer Screen INDICATIONS: CURRENT SMOKER TECHNIQUE: Noncontrast low-dose axial images were acquired from the pulmonary apices to the posterior costophren ic angles. Multiplanar MIP reformats were then reconstructed. For radiation dose reduction, the follo wing was used: automated exposure control, adjustment of mA and/or kV according to patient size. COMPARISON: None. FINDINGS Mild centrilobular emphysema. Unless otherwise stated, all nodules are described on series 4: Nodules: Right upper lobe: 4 mm spiculated nodule, image 168. Right middle lobe: Collapsed Right lower lobe: 3 mm anterior nodule, image 187. Left upper lobe: Focal area of collapse, anterior medial aspect, image 159/4. Left lower lobe: No nodules Mediastinum: Heart size is normal. No pericardial effusion. Severe coronary artery calcifications. No mediastinal adenopathy by size criteria. Thoracic aorta and central pulmonary arteries are normal in size. Esophagus is normal in caliber. No hiatal hernia. Bones and chest wall: No suspicious bony lesions. No vertebral body compression fractures. No axil sohail or supraclavicular adenopathy by size criteria. The thyroid is normal in size and there are no incidental findings. Abdomen: Visualized upper abdomen solid organs and bowel loops appear normal in the absence of contr ast. IMPRESSION: 1. Mild centrilobular emphysema. 2. Collapse of the right middle lobe. Small area of collapse of the anterior medial left upper lobe. 3. 4 mm spiculated right upper lobe nodule, 3 mm right lower lobe nodule Lung RAD: 4A - Suspicious. Findings for which additional diagnostic testing is recommended. Recommendation: 3 month follow up LDCT; PET/CT may be used when there is a >= 8mm solid component. In this case, recommend three-month follow-up CT. Non-Lung Significant Findings: Coronary Arterial Calcification - Moderate or Severe CLINICAL RECOMMENDATION STATEMENTS: In patients <35 years with an ITN detected on CT, MRI, or extrathyroidal ultrasound, the Committee re commends further evaluation with dedicated thyroid ultrasound if the nodule is "e1 cm and has no susp icious imaging features, and if the patient has normal life expectancy. In patients "e35 years with an ITN detected on CT, MRI, or extrathyroidal ultrasound, the Committee r ecommends further evaluation with dedicated thyroid ultrasound if the nodule is "e1.5 cm and has no s uspicious imaging features, and if the patient has normal life expectancy. (ACR, 2014) Reviewed by: Ruslan Flores MD on 11/05/2022 12:11 PM PST Approved by: Ruslan Flores MD on 11/05/2022 12:11 PM PST Station ID: [id number] Lung-Rad Lung-Recommendation [id number]
== END 2022-11-05 09:10 | disposition home or self-care (01) ==
LOC: DI 09:09
PROVIDERS: ATTEND Student in an Organized Health Care Education/Training Program
DX: Z13.820 Encounter for screening for osteoporosis (principal); Z12.2 Encounter for screening for malignant neoplasm of respiratory organs; F17.210 Nicotine dependence, cigarettes, uncomplicated; M85.88 Other specified disorders of bone density and structure, other site; J43.2 Centrilobular emphysema; J98.19 Other pulmonary collapse; R91.8 Other nonspecific abnormal finding of lung field; I25.10 Atherosclerotic heart disease of native coronary artery without angina pectoris; Z78.0 Asymptomatic menopausal state

== ENCOUNTER 2023-06-24 09:21 | Outpatient (CLI) | payer OTHER ==
[2023-06-24 09:46] LABS: BASOPHILS # (AUTO) 0.1 10^3/uL (0.0-0.1); BASOPHILS % (AUTO) 0.6 %; EOSINOPHILS # (AUTO) 0.3 10^3/uL (0.0-0.7); EOSINOPHILS % (AUTO) 3.7 %; HCT - HEMATOCRIT 41.3 % (37.0-47.0); HGB - HEMOGLOBIN 13.4 g/dL (12.0-16.0); LYMPHOCYTES # (AUTO) 1.9 10^3/uL (1.5-3.5); MEAN CORPUSCULAR HEMOGLOBIN 30.2 pg (27.0-31.0); MEAN CORPUSCULAR HGB CONC 32.4 g/dL (32.0-36.0); MEAN PLATELET VOLUME 10.6 fL (7.9-10.8); MONOCYTES # (AUTO) 0.6 10^3/uL (0.0-1.0); MONOCYTES % (AUTO) 8.2 %; NEUTROPHILS # (AUTO) 4.9 10^3/uL (1.5-6.6); NEUTROPHILS % (AUTO) 63.2 %; PLT - PLATELET COUNT 259 10^3/uL (130-450); RED BLOOD COUNT 4.44 10^6/uL (4.20-5.40); RED CELL DISTRIBUTION WIDTH 14.7 % (12.0-15.0); WHITE BLOOD COUNT 7.8 x10^3/uL (4.8-10.8)
[2023-06-24 09:57] LABS: BILIRUBIN,URINE NEGATIVE (NEGATIVE); GLUCOSE, URINE (UA) NEGATIVE (NEGATIVE); KETONES,URINE (UA) NEGATIVE (NEGATIVE); LEUKOCYTE ESTERASE, URINE NEGATIVE (NEGATIVE); NITRITE,URINE NEGATIVE (NEGATIVE); OCCULT BLOOD,URINE NEGATIVE (NEGATIVE); PROTEIN,URINE NEGATIVE (NEGATIVE); UROBILINOGEN,URINE 0.2 (NORMAL) E.U./dL (NORMAL)
[2023-06-24 10:04] LABS: ALBUMIN 4.1 g/dL (3.2-5.5); ALBUMIN/GLOBULIN RATIO 1.3 (1.0-2.2); ALKALINE PHOSPHATASE 53 IU/L (42-121); ALT ALANINE AMINOTRANSFERASE 18 IU/L (10-60); AST ASPARTATE AMINOTRANSFERASE 18 IU/L (10-42); BILIRUBIN,TOTAL 0.5 mg/dL (0.2-1.0); BUN - BLOOD UREA NITROGEN 8 mg/dL (6-20); CALCIUM 9.4 mg/dL (8.5-10.3); CARBON DIOXIDE - CO2 32 mmol/L (21-32); CHLORIDE 103 mmol/L (101-111); CHOL/HDL RATIO 2.8 (<4.4); CHOLESTEROL 207 mg/dL; CREATININE 0.5 mg/dL (0.6-1.3); GFR - MDRD 123 (>89); GLUCOSE 101 mg/dL (74-104); HDL CHOLESTEROL 73 mg/dL; LDL CHOLESTEROL,CALCULATED 114 mg/dL; LDL/HDL RATIO 1.6 (<4.4); SODIUM 139 mmol/L (135-145); TOTAL PROTEIN 7.3 g/dL (6.4-8.9); TRIGLYCERIDES 101 mg/dL (48-352); VLDL CHOLESTEROL 20 mg/dL
[2023-06-24 10:11] LABS: CREATININE,URINE 23.5 mg/dL; MICROALBUM/CREATININE RATIO,UR 38.3 ug/mg (<30.0); MICROALBUMIN,URINE 0.9 mg/dL
[2023-06-24 10:17] LABS: THYROID STIMULATING HORMONE 2.93 uIU/mL (0.34-5.60)
[2023-06-24 10:20] LABS: CLARITY,URINE CLEAR (CLEAR)
[2023-06-24 12:45] LABS: ESTIMATED AVERAGE GLUCOSE 134 mg/dL (70-100); HEMOGLOBIN A1c% 6.3 % (4.27-6.07)
--- NOTE | 2023-06-24 21:17 | XRAY Report ---
PROCEDURE: Lumbar Spine 2 View INDICATIONS: BACK PAIN,LOW TECHNIQUE: 2 view(s) of the lumbar spine were acquired. COMPARISON: None. FINDINGS: Bones: Vertebral body height and alignment is maintained. No suspicious bony lesions. Mild convex le ft lumbar scoliosis present. Soft tissues: Disc space narrowing and anterior osteophytes noted particularly in the upper lumbar sp ine. Hypertrophic facet joints present in the lower lumbar spine. Atherosclerotic calcification of th e abdominal aorta without evidence of aneurysm. Surgical clips noted in the right upper quadrant IMPRESSION: Degenerative disc disease and arthropathy Reviewed by: Klaus Cifuentes MD on 06/24/2023 8:16 PM OTILIA Approved by: Klaus Cifuentes MD on 06/24/2023 8:16 PM OTILIA Station ID: [id number]
--- NOTE | 2023-06-24 21:35 | XRAY Report ---
PROCEDURE: Thoracic Spine 3 View INDICATIONS: BACK PAIN,LOW TECHNIQUE: 2 view(s) of the thoracic spine were acquired. COMPARISON: None FINDINGS: Bones: Vertebral body height and alignment maintained. No lytic or blastic intrinsic lesions. Mild c onvex left thoracic scoliosis associated with degenerative joint space narrowing and small marginal a nterior osteophytes noted in the midthoracic spine Soft tissues: Paravertebral soft tissues are unremarkable IMPRESSION: Degenerative disc disease midthoracic spine. No fracture. Reviewed by: Klaus Cifuentes MD on 06/24/2023 8:33 PM AKCAITLYN Approved by: Klaus Cifuentes MD on 06/24/2023 8:33 PM AKCAITLYN Station ID: [id number]
== END 2023-06-24 09:22 | disposition home or self-care (01) ==
LOC: DI 09:21
PROVIDERS: ATTEND Nurse Practitioner
DX: M51.34 Other intervertebral disc degeneration, thoracic region (principal); M47.816 Spondylosis without myelopathy or radiculopathy, lumbar region; M51.36 Other intervertebral disc degeneration, lumbar region; R53.83 Other fatigue; E78.5 Hyperlipidemia, unspecified; R73.03 Prediabetes; I10 Essential (primary) hypertension
CPT/HCPCS: 36415; 80053; 80061; 81003; 82043; 82570; 83036; 83721; 84443; 85025

== ENCOUNTER 2023-07-14 13:02 | Outpatient (CLI) | payer MEDICARE, OTHER ==
--- NOTE | 2023-07-14 20:14 | CT Report ---
PROCEDURE: CHEST WO INDICATIONS: LUNG NODULES TECHNIQUE: Noncontrast 1mm axial images were acquired from the pulmonary apices to the posterior costophrenic an gles. Axial 5 mm soft tissue kernel reconstructions were performed as well as 8 mm axial MIP and cor onal and sagittal 5 mm reformations. For radiation dose reduction, the following was used: automate d exposure control, adjustment of mA and/or kV according to patient size. COMPARISON: CT chest 11/05/2022 FINDINGS: Image quality: Excellent. Lungs and pleura: Redemonstration of right middle lobe collapse. Mild centrilobular emphysema. Bibasi lar and lingular subsegmental atelectasis. No pleural effusions. No pneumothorax. Index pulmonary nodules as follows: Right lower lobe 3 mm nodule (3/158, MIP image 79), stable Previously described right upper lobe 4 mm spiculated nodule is no longer visualized. Interval resolution of focal area of collapse in the anterior medial aspect of the left upper lobe. No new or enlarging pulmonary nodule. Mediastinum: Heart size is normal. No pericardial effusion. No large vessel abnormality. No mediastin al adenopathy by size criteria. Severe coronary artery calcifications. Chest wall and lower neck: Thyroid is unremarkable. No axillary or supraclavicular adenopathy by size . Bones: No aggressive osseous abnormality. Upper Abdomen: Unremarkable. IMPRESSION: Interval resolution of 4 mm spiculated right upper lobe nodule. Stable 3 mm right lower lobe nodule. No new or enlarging nodules visualized. Persistent right middle lobe collapse. Interval resolution of focal consolidation/collapse at the ant erior medial left upper lobe. Mild centrilobular emphysema. Reviewed by: Alea Dominguez MD on 07/14/2023 8:13 PM PST Approved by: Alea Dominguez MD on 07/14/2023 8:13 PM PST Station ID: [id number]
== END 2023-07-14 13:03 | disposition home or self-care (01) ==
LOC: DI 13:02
PROVIDERS: ATTEND Nurse Practitioner
DX: R91.1 Solitary pulmonary nodule (principal); J98.19 Other pulmonary collapse; J43.2 Centrilobular emphysema

== ENCOUNTER 2023-09-06 09:43 | Outpatient (CLI) | payer MEDICARE, OTHER ==
--- NOTE | 2023-09-06 14:08 | CT Report ---
PROCEDURE: Chest WO INDICATIONS: RML LUNG COLLAPSE TECHNIQUE: A CT scan of the chest was performed. Intravenous contrast media was not administered. Images were re corded and evaluated at appropriate window settings. Reformats: axial MIP of the chest, coronal and s agittal. For radiation dose reduction, the following was used: automated exposure control, adjustment of mA and/or kV according to patient size. COMPARISON: None. FINDINGS: Image quality: Excellent. Lungs and pleura: No consolidation. No pleural effusions. No pneumothorax. 9 mm groundglass nodule in the right lower lobe (series 3, image 187). Remaining pulmonary micronodul es are unchanged. Moderate centrilobular emphysema. Persistent atelectasis of the right middle lobe. The airways of the medial segment are widely patent, while the subsegmental airways of the lateral s egment are opacified. Mediastinum: Heart size is normal. No pericardial effusion. No large vessel abnormality. No mediastin al adenopathy by size criteria. Three-vessel coronary calcifications. Chest wall and lower neck: Thyroid is unremarkable. No axillary or supraclavicular adenopathy by size . Bones: No aggressive osseous abnormality. Upper Abdomen: 2.1 cm right adrenal adenoma, based on Hounsfield units criteria (-8). IMPRESSION: Persistent collapse of the right middle lobe. The airways of the medial segment are widely patent, wh ile the subsegmental airways of the lateral segment are opacified. No obstructing mass can be seen on this noncontrast study. No adenopathy. New 9 mm groundglass nodule in the right lower lobe, presumably post infectious. 12 month follow-up is indicated per [employer] guidelines. Reviewed by: Gerson Mancuso MD on 09/06/2023 2:07 PM PST Approved by: Gerson Mancuso MD on 09/06/2023 2:07 PM PST Station ID: [id number]
== END 2023-09-06 09:44 | disposition home or self-care (01) ==
LOC: DI 09:43
PROVIDERS: ATTEND Nurse Practitioner
DX: J98.19 Other pulmonary collapse (principal); J43.2 Centrilobular emphysema; R91.1 Solitary pulmonary nodule

== ENCOUNTER 2024-02-03 13:29 | Outpatient (CLI) | payer MEDICARE, OTHER ==
--- NOTE | 2024-02-03 18:44 | XRAY Report ---
PROCEDURE: Chest 2V INDICATIONS: RML LUNG COLLAPSE TECHNIQUE: 2 views of the chest were acquired. COMPARISON: CT chest 1 04/18/2004 FINDINGS: Surgical changes and devices: None. Lungs and pleura: Very minimal streaky opacities are present in the right base. Mediastinum: Mediastinal contours appear normal. Heart size is normal. Bones and chest wall: No suspicious bony lesions. Overlying soft tissues appear unremarkable. IMPRESSION: Very minimal streaky right basilar opacities possibly atelectasis. However, developing pneumonia suraj ot be excluded. Reviewed by: Alma Rosa Leon MD on 02/03/2024 6:43 PM PDT Approved by: Alma Rosa Leon MD on 02/03/2024 6:43 PM PDT Station ID: [id number]
== END 2024-02-03 13:30 | disposition home or self-care (01) ==
LOC: DI 13:29
PROVIDERS: ATTEND Nurse Practitioner
DX: J98.19 Other pulmonary collapse (principal)

== ENCOUNTER 2024-04-10 10:55 | Outpatient (CLI) | payer MEDICARE, OTHER ==
--- NOTE | 2024-04-11 16:51 | CT Report ---
PROCEDURE: Chest WO INDICATIONS: R LUNG COLLAPSE TECHNIQUE: A CT scan of the chest was performed. Intravenous contrast media was not administered. Images were re corded and evaluated at appropriate window settings. Reformats: axial MIP of the chest, coronal and s agittal. For radiation dose reduction, the following was used: automated exposure control, adjustment of mA and/or kV according to patient size. COMPARISON: CT chest on September 06, 2023. Chest radiograph on February 03, 2024.. FINDINGS: Image quality: Diagnostic. Chest wall and lower neck: No thyroid nodule which requires sonographic follow up. No axillary or sup raclavicular adenopathy by size. Lungs and pleura: No consolidation. No pleural effusions. No pneumothorax. Small centrilobular/tree- in-bud nodules in the bilateral upper and lower lobes, best seen on the MIPS reconstructions (10/53, 75, 77, 96), some of which are new compared to prior CT chest dated September 06, 2023. No apical predom inant centrilobular and paraseptal emphysema. Linear atelectasis/scar in the lingula and persistent c onsolidation in the middle lobe. Patent central airways. Stable groundglass opacity in the right lowe r lobe measuring 9 mm. Mediastinum: Heart size is normal. No pericardial effusion. No large vessel abnormality. No mediastin al adenopathy by size criteria. Marked three-vessel coronary vessel calcification/stent. Mild calcif ication of the thoracic aorta. Bones: No aggressive osseous abnormality. [id number] multilevel degenerative changes of the spi ne. Upper Abdomen: Mild to moderate calcification of the abdominal aorta.. IMPRESSION: 1.Small centrilobular/tree-in-bud nodules in the bilateral upper and lower lobes, some of which are n ew compared to prior CT chest dated September 06, 2023. Findings are suggestive of bronchiolitis of infe ctious or inflammatory etiology. Recommend a contrast-enhanced CT chest in 3-6 months. 2.Persistent collapse of the middle lobe and subsegmental lingular atelectasis/scar. As before, no ev idence of a centrally obstructing mass; however, evaluation is limited on this noncontrast study. Att ention on follow-up contrast enhanced CT. 3.Stable groundglass opacity measuring 9 mm in the right lower lobe. 4.Marked three-vessel coronary calcification/stent. 5.Mild emphysema. Reviewed by: France Castellanos MD on 04/11/2024 4:50 PM PDT Approved by: France Castellanos MD on 04/11/2024 4:50 PM PDT Station ID: [id number]
== END 2024-04-10 10:56 | disposition home or self-care (01) ==
LOC: DI 10:55
PROVIDERS: ATTEND Internal Medicine Critical Care Medicine
DX: J98.11 Atelectasis (principal); R91.8 Other nonspecific abnormal finding of lung field; J43.9 Emphysema, unspecified; R93.1 Abnormal findings on diagnostic imaging of heart and coronary circulation